=== PATIENT | female | born 1940 | race Caucasian/White ===

== ENCOUNTER 2017-12-15 06:52 | Day surgery (SDC) | payer OTHER, MEDICARE ==
[2017-12-14 09:48] VITALS: BMI 48.2
--- NOTE | 2017-12-14 19:18 | HP ---
- Patient Scheduled date of Surgery: 12/15/17 Scheduled Surgical Procedure: Phacoemulsification and cataract extraction with PCIOL Affected Eye: Right Chief Complaint (Indication for surgery): Decreased vision affecting ADLs - Ocular History Other Eye History: Other (Exotropia) Eye Medications: vigamox Previous Eye Surgery: none - Medical History Illnesses: Hypertension, Other (lymphedema, obesity, PVD) Current Medications: Ambulatory Orders Acetaminophen [Tylenol] 650 mg PO DAILY 12/14/17 Budesonide/Formeterol Fumarate [SYMBICORT 160/4.5mcg -] 1 inh PO BID 12/14/17 Gabapentin [Neurontin -] 100 mg PO HS 12/14/17 Lactobacillus Acidophilus [Acidophilus] 1 each PO DAILY 12/14/17 Lidocaine 5% Patch [Lidoderm Patch -] 1 patch TP DAILY 12/14/17 Lisinopril [Zestril] 40 mg PO DAILY 12/14/17 Moxifloxacin HCl [Vigamox 0.5% Eye Drops -] 1 drop OP DAILY 12/14/17 Tiotropium [place] [Spiriva] 1 inh IH DAILY 12/14/17 Tramadol HCl [Ultram] 50 mg PO PRN 12/14/17 Allergies/Adverse Reactions: Allergies Allergy/AdvReac Type Severity Reaction Status Date / Time atropine [From ] Allergy Verified 12/14/17 09:36 hyoscyamine [From ] Allergy Verified 12/14/17 09:36 phenobarbital [From ] Allergy Verified 12/14/17 09:36 prochlorperazine Allergy Verified 12/14/17 09:35 [From Compazine] scopolamine [From ] Allergy Verified 12/14/17 09:36 strawberry Allergy Verified 12/14/17 09:36 Ocular Examination - Best Corrected Visual Acuity Distance: Right eye: 20/70 Distance: Left eye: 20/40 - External/Slit Lamp Examination Abnormalities: arcus - Intraocular Pressure Intraocular Pressure - Right eye: 12 Intraocular Pressure-Left eye: 12 - Lens Lens: 3+ NS - Vitreous/Retina Vitreous/Retina: c:d 0.2 m/v/p wnl - Special Examination M - Right eye: -4.50-1.75 x 090 M - Left eye: -3.25 -1.25 x 075 K - Right eye: 44/45.5 x 055 K - Left eye: 44/45.5 x 175 AL - Right eye: 22.5 AL - Left eye: 22.80 IOL ba D Au00t IOL sulcus: +24.5 d MN60 AC IOL AC: +20.5 d MTA 4uo - Impression Impression: Cataract Right Eye - Plan Plan: Phacoemulsification and cataract extraction - IOL Right eye Post-hospital care will be provided in office on: 12/16/17
[~2017-12-15 06:52] MED LIST: CHONDROITIN SU A/HYALUR SOD 1 KIT IO ONE; LIDOCAINE HCL 1% PRESERVATIVE FREE - 30ML VIAL IO ONE; LIDOCAINE HCL 2% JELLY (5 ML/TUBE) TP ONE; TOBRAMYCIN/DEXAMETHASONE OPHTH. OINTMENT 1 TUBE TP ONE
[2017-12-15] MEDS ORDERED: LIDOCAINE HCL 2% JELLY (5 ML/TUBE) ONE (07:29)
[2017-12-15] MEDS ORDERED: LIDOCAINE HCL/PF 1% SDV 5ML VIAL ONE (07:29)
[2017-12-15] MEDS ORDERED: PHENYLEPHRINE 2.5% OPHTH SOLN 15 ML BOTTLE OP SCH (07:30)
[2017-12-15] MEDS ORDERED: CIPROFLOXACIN HCL 0.3% OPHTH 2.5ML BOTTLE OP SCH (07:30)
[2017-12-15] MEDS ORDERED: TROPICAMIDE 1% OPHTH SOLN 15 ML BOTTLE OP SCH (07:30)
[2017-12-15] MEDS ORDERED: ACETAMINOPHEN 325 MG TABLET (FP) PO PRN (07:30)
[2017-12-15] MEDS ORDERED: DICLOFENAC SODIUM 0.1% OPHTHALMIC 2.5ML BOTTLE OP SCH (07:30)
--- NOTE | 2017-12-15 07:36 | HP ---
History & Physical Update - History History: No Change - Physical Physical: No Change - Assessment Assessment: No Change - Plan Plan: No Change (Reviewed H and P by Dr. Hunter Graves from 12/10/17 , no changes )
[2017-12-15] MEDS ORDERED: TROPICAMIDE 0.5% OPHTHALMIC SOLN 15 ML BOTTLE ONE (08:03)
[2017-12-15] MEDS ORDERED: FLURBIPROFEN 0.03% OPHTH SOLN 2.5 ML BOTTLE ONE (08:03)
[2017-12-15] MEDS ORDERED: CIPROFLOXACIN 0.3% EYE DROPS 5 ML BOTTLE ONE (08:04)
[2017-12-15] MEDS ORDERED: CIPROFLOXACIN HCL 0.3% OPHTH 2.5ML BOTTLE OD ONE ×3 (08:15→08:35)
[2017-12-15] MEDS ORDERED: TROPICAMIDE 1% OPHTH SOLN 15 ML BOTTLE OD ONE ×3 (08:15→08:35)
[2017-12-15] MEDS ORDERED: PHENYLEPHRINE 2.5% OPHTH SOLN 15 ML BOTTLE OD ONE ×3 (08:15→08:35)
[2017-12-15] MEDS ORDERED: FLURBIPROFEN 0.03% OPHTH SOLN 2.5 ML BOTTLE OD ONE ×3 (08:15→08:35)
[2017-12-15] MEDS ORDERED: MIDAZOLAM HCL 2 MG/2 ML SINGLE DOSE VIAL ONE (09:56)
[2017-12-15] MEDS ORDERED: LIDOCAINE HCL 2% JELLY (5 ML/TUBE) TP ONE (10:00)
[2017-12-15] MEDS ORDERED: FLURBIPROFEN 0.03% OPHTH SOLN 2.5 ML BOTTLE OD SCH (10:00)
[2017-12-15] MEDS ORDERED: LIDOCAINE HCL 1% PRESERVATIVE FREE - 30ML VIAL IO ONE (10:14)
[2017-12-15] MEDS ORDERED: CHONDROITIN SU A/HYALUR SOD 1 KIT IO ONE (10:15)
[2017-12-15] MEDS ORDERED: TOBRAMYCIN/DEXAMETHASONE OPHTH. OINTMENT 1 TUBE ONE (10:20)
[2017-12-15] MEDS ORDERED: TOBRAMYCIN/DEXAMETHASONE OPHTH. OINTMENT 1 TUBE TP ONE (10:42)
--- NOTE | 2017-12-15 10:55 | OP ---
Ophthalmology Operative Note Pre-Operative Diagnosis: Cataract Affected Eye: Right Operation: Phacoemulsification and cataract extraction with PCIOL Post-Operative Diagnosis: Other (Mature cataract) Beveling And Edging Machine Operator: None Anesthesiologist: Mabel Krueger Anesthesia: Local, Topical Specimens Removed: none Estimated blood loss: none Drains & Tubes with Location: none Operative Report Dictated: Yes
--- NOTE | 2017-12-15 11:25 | OP ---
DATE OF OPERATION: 12/15/2017 PREOPERATIVE DIAGNOSIS: Nuclear sclerotic cataract, right eye. POSTOPERATIVE DIAGNOSIS: Mature cataract, right eye. PROCEDURE: Phacoemulsification and cataract extraction with insertion of posterior chamber intraocular lens, right eye. SURGEON: Lottie Ziegler MD LETTERSET PRESS SET UP OPERATOR: None. ANESTHESIA: Topical. ANESTHESIOLOGIST: Mabel Krueger MD OPERATIVE PROCEDURE: The patient received lidocaine 2% gel and was then gently sedated and prepped and draped in the usual sterile fashion so as to expose only the right eye. Ophthalmic Betadine was instilled into the inferior fornix, and the lashes were taped out of the surgical field. An eyelid speculum was placed into the right eye. A paracentesis was made in superior clear cornea at the limbus. Next, 0.5 mL of nonpreserved lidocaine 1% was injected into the anterior chamber. Viscoelastic material was instilled into the anterior chamber via the paracentesis. A 2.4-mm keratome was then used to create the main incision in temporal clear cornea at the limbus. A continuous curvilinear capsulorrhexis was performed using a cystotome and Utrata forceps. Hydrodissection of the lens cortex was performed using BSS on a cannula until the nucleus was noted to be freely rotating. The phacoemulsification tip was inserted via the main wound and used to sculpt 2 perpendicular grooves into the lens nucleus. The nucleus was cracked into 4 quadrants. Each quadrant was lifted out of the capsule into the iris plane and individually phacoemulsified. The remaining cortical material was then aspirated using the irrigation and aspiration port. The capsular bag was inflated using Provisc, and a preloaded Carmelo lens model [id number], power +25.0 diopters was injected into the capsular bag. It was centered using a Sinskey hook. The residual viscoelastic material was removed from the anterior chamber using irrigation and aspiration. The wound edges were hydrated using BSS. The wound was tested for leakage. It was found to be watertight. Therefore, TobraDex ointment was placed in the eye and the speculum was removed from the eye and the eyelid was closed. A sterile dressing and shield were placed over the eye, and the patient was transferred to the recovery room in stable condition, told to follow up in 1 day. LOTTIE ZIEGLER M.D. [id number]
[2017-12-16 11:07] VITALS: BP 138/70; PULSE 70; TEMP 97.8
== END 2017-12-15 12:45 ==
LOC: JASU-SURG 06:52
PROVIDERS: ATTEND Ophthalmology
PROC: 08RJ3JZ Replacement of Right Lens with Synthetic Substitute, Percutaneous Approach (ICD-10-PCS; principal; 2017-12-15 10:00)
DX: H25.091 Other age-related incipient cataract, right eye (principal)

== ENCOUNTER 2018-01-12 06:37 | Day surgery (SDC) | payer OTHER, MEDICARE ==
[2018-01-11 09:48] VITALS: BMI 50.3
--- NOTE | 2018-01-11 17:21 | HP ---
- Patient Scheduled date of Surgery: 01/13/18 Scheduled Surgical Procedure: Phacoemulsification and cataract extraction with PCIOL Affected Eye: Left Chief Complaint (Indication for surgery): Decreased vision affecting ADLs - Ocular History Other Eye History: Other (XT) Eye Medications: vigamox Previous Eye Surgery: s/p ce/pciol OD mature topical - Medical History Illnesses: COPD, Hypertension, Other (PVD, lymphedema, obesity) Current Medications: Ambulatory Orders Acetaminophen [Tylenol] 650 mg PO DAILY 12/14/17 Budesonide/Formeterol Fumarate [SYMBICORT 160/4.5mcg -] 1 inh PO BID 12/14/17 Gabapentin [Neurontin -] 100 mg PO HS 12/14/17 Lactobacillus Acidophilus [Acidophilus] 1 each PO DAILY 12/14/17 Lidocaine 5% Patch [Lidoderm Patch -] 1 patch TP DAILY 12/14/17 Lisinopril [Zestril] 40 mg PO DAILY 12/14/17 Moxifloxacin HCl [Vigamox 0.5% Eye Drops -] 1 drop OP DAILY 12/14/17 Tiotropium [place] [Spiriva] 1 inh IH DAILY 12/14/17 Tramadol HCl [Ultram] 50 mg PO PRN 12/14/17 Allergies/Adverse Reactions: Allergies Allergy/AdvReac Type Severity Reaction Status Date / Time atropine [From ] Allergy Verified 12/14/17 09:36 hyoscyamine [From ] Allergy Verified 12/14/17 09:36 phenobarbital [From ] Allergy Verified 12/14/17 09:36 prochlorperazine Allergy Verified 12/14/17 09:35 [From Compazine] scopolamine [From ] Allergy Verified 12/14/17 09:36 strawberry Allergy Verified 12/14/17 09:36 Ocular Examination - Best Corrected Visual Acuity Distance: Right eye: 20/25 Distance: Left eye: 20/50 - External/Slit Lamp Examination Abnormalities: wnl - Intraocular Pressure Intraocular Pressure - Right eye: 10 Intraocular Pressure-Left eye: 14 - Lens Lens: 3+ NS - Vitreous/Retina Vitreous/Retina: c:d 0.2 m/v/p wnl - Special Examination M - Right eye: -3.25-1.25 x 125 M - Left eye: -3.25 -1.25 x 075 K - Right eye: 44/45.25 x 033 K - Left eye: 44/45.25 x 170 AL - Left eye: 22.50 IOL bag: +25.0 d [place]o IOL sulcus: +24.5 MN60ac IOL AC: +20.5 d MTA 4uo - Impression Impression: Cataract Left Eye - Plan Plan: Phacoemulsification and cataract extraction - IOL Left eye Post-hospital care will be provided in office on: 01/13/18
[~2018-01-12 06:37] MED LIST changes: -CHONDROITIN SU A/HYALUR SOD 1 KIT IO ONE; +EPINEPHrine/PF 1 MG/1 ML (1:1,000) AMPULE SQ ONE; +KETOROLAC TROMETHAMINE 0.5% 5 ML BOTTLE OPTHALMIC OP SCH; -LIDOCAINE HCL 1% PRESERVATIVE FREE - 30ML VIAL IO ONE; -LIDOCAINE HCL 2% JELLY (5 ML/TUBE) TP ONE; +TOBRAMYCIN/DEXAMETHASONE OPHTH. OINTMENT 1 TUBE OS ONE; -TOBRAMYCIN/DEXAMETHASONE OPHTH. OINTMENT 1 TUBE TP ONE
[2018-01-12] MEDS ORDERED: ACETAMINOPHEN 325 MG TABLET (FP) PO PRN (07:00)
[2018-01-12] MEDS ORDERED: CHONDROITIN SU A/HYALUR SOD 1 KIT ONE ×2 (07:07→10:36)
[2018-01-12] MEDS ORDERED: CIPROFLOXACIN 0.3% EYE DROPS 5 ML BOTTLE ONE (07:21)
[2018-01-12] MEDS ORDERED: PHENYLEPHRINE 2.5% OPHTH SOLN 15 ML BOTTLE ONE (07:21)
[2018-01-12] MEDS ORDERED: TROPICAMIDE 1% OPHTH SOLN 15 ML BOTTLE ONE (07:21)
[2018-01-12] MEDS ORDERED: FLURBIPROFEN 0.03% OPHTH SOLN 2.5 ML BOTTLE ONE (07:21)
--- NOTE | 2018-01-12 07:24 | HP ---
History & Physical Update - History History: No Change - Physical Physical: No Change - Assessment Assessment: No Change - Plan Plan: No Change (Reviewed Dr. Graves's H and P from 12/10/16 no changes)
[2018-01-12] MEDS: TROPICAMIDE 1% OPHTH SOLN 15 ML BOTTLE OP SCH ×3 (07:25→07:46)
[2018-01-12] MEDS: FLURBIPROFEN 0.03% OPHTH SOLN 2.5 ML BOTTLE OP SCH ×3 (07:25→07:46)
[2018-01-12] MEDS: CIPROFLOXACIN HCL 0.3% OPHTH 2.5ML BOTTLE OP SCH ×2 (07:25→07:35)
[2018-01-12] MEDS: PHENYLEPHRINE 2.5% OPHTH SOLN 15 ML BOTTLE OP SCH ×3 (07:25→07:46)
[2018-01-12 07:27] VITALS: TEMP 98.1
[2018-01-12] MEDS ORDERED: LIDOCAINE HCL/PF 1% SDV 5ML VIAL ONE (07:29)
[2018-01-12] MEDS ORDERED: TOBRAMYCIN/DEXAMETHASONE OPHTH. OINTMENT 1 TUBE ONE (07:29)
[2018-01-12] MEDS ORDERED: POVIDONE-IODINE 5% OPHTHALMIC PREP 30 ML SOLUTION ONE (07:30)
[2018-01-12] MEDS ORDERED: BSS (NA/CA/MG/K) BALANCED SALT SOLUTION OPHTH SOLN 15 ML BOTTLE ONE (07:30)
[2018-01-12] MEDS ORDERED: LIDOCAINE HCL 2% JELLY (5 ML/TUBE) ONE (07:31)
[2018-01-12] MEDS ORDERED: FLURBIPROFEN 0.03% OPHTH SOLN 2.5 ML BOTTLE OS SCH (07:45)
[2018-01-12] MEDS ORDERED: MIDAZOLAM HCL 2 MG/2 ML SINGLE DOSE VIAL ONE (08:13)
[2018-01-12] MEDS ORDERED: LIDOCAINE HCL 2% JELLY (5 ML/TUBE) TP ONE (08:15)
[2018-01-12] MEDS ORDERED: POVIDONE-IODINE 5% OPHTHALMIC PREP 30 ML SOLUTION OS ONE (08:20)
[2018-01-12] MEDS ORDERED: LIDOCAINE HCL 1% PRESERVATIVE FREE - 30ML VIAL IO ONE (08:27)
[2018-01-12] MEDS ORDERED: BSS (NA/CA/MG/K) BALANCED SALT SOLUTION OPHTH SOLN 15 ML BOTTLE OS ONE ×2 (08:27)
[2018-01-12] MEDS ORDERED: CHONDROITIN SU A/HYALUR SOD 1 KIT IO ONE ×2 (08:27)
[2018-01-12] MEDS ORDERED: EPINEPHrine/PF 1 MG/1 ML (1:1,000) AMPULE SQ ONE (08:36)
[2018-01-12] MEDS ORDERED: TOBRAMYCIN/DEXAMETHASONE OPHTH. OINTMENT 1 TUBE OS ONE (09:06)
--- NOTE | 2018-01-12 09:14 | OP ---
Ophthalmology Operative Note Pre-Operative Diagnosis: Mature cataract Affected Eye: Left Operation: Phacoemulsification and cataract extraction with PCIOL Findings: mature cataract left eye Post-Operative Diagnosis: Same as Pre-op Offset Lithographic Press Setter: None Anesthesiologist: Jer Lay Anesthesia: Local, Topical Specimens Removed: none Estimated blood loss: <1 cc Drains & Tubes with Location: none Operative Report Dictated: Yes
--- NOTE | 2018-01-12 09:44 | OP ---
DATE OF OPERATION: DATE OF DICTATION: 01/12/2018 PREOPERATIVE DIAGNOSIS: Mature cataract, left eye. POSTOPERATIVE DIAGNOSIS: Mature cataract, left eye. PROCEDURE: Phacoemulsification and cataract extraction with insertion of posterior chamber intraocular lens, left eye. SURGEON: Lottie Ziegler MD MOTOR INSTALLER: None. ANESTHESIA: Topical. ANESTHESIOLOGIST: Jer Lay MD OPERATIVE PROCEDURE: The patient received 2% lidocaine gel and was then gently sedated and prepped and draped in the usual sterile fashion so as to expose only the left eye. Ophthalmic Betadine was instilled into the inferior fornix and the lashes were taped out of the surgical field. An eyelid speculum was placed into the left eye. A paracentesis was made in inferior clear cornea at the limbus. Nonpreserved lidocaine 1%, 0.5 mL, was instilled into the anterior chamber. Then viscoelastic material was instilled into the anterior chamber via the paracentesis. A 2.4-mm keratome was used to create the main incision in temporal clear cornea at the limbus. A continuous curvilinear capsulorrhexis was performed using a cystotome and Utrata forceps. Hydrodissection of the lens cortex was performed using BSS on a cannula until the nucleus was noted to be freely rotating. The phacoemulsification tip was inserted via the main wound and used to sculpt 2 perpendicular grooves into the lens nucleus. The nucleus was cracked into 4 quadrants. Each quadrant was lifted out of the capsule into the iris plane and individually phacoemulsified. The remaining cortical material was then aspirated using the irrigation and aspiration port. The capsular bag was inflated using Provisc and a preloaded AcrySof lens model [id number], power +25.0 diopters for myopia was injected into the capsular bag and centered using a Sinskey hook. The residual viscoelastic material was removed from the anterior chamber using irrigation and aspiration. The wound edges were hydrated using BSS. The wound was tested for leakage. It was found to be watertight. Therefore, TobraDex ointment was placed in the eye and the speculum was removed from the eye and the eyelid was closed. A sterile dressing and shield were placed over the eye and the patient was transferred to the recovery room in stable condition and told to follow up in 1 day. LOTTIE ZIEGLER M.D. [id number]
[2018-01-12 10:21] VITALS: BP 145/82; PULSE 89
== END 2018-01-12 10:20 | disposition home or self-care (01) ==
LOC: JASU-SURG 06:37
PROVIDERS: ATTEND Ophthalmology
PROC: 08RK3JZ Replacement of Left Lens with Synthetic Substitute, Percutaneous Approach (ICD-10-PCS; principal; 2018-01-12 08:30)
DX: H25.092 Other age-related incipient cataract, left eye (principal)